=== PATIENT | female | born 1945 | race Caucasian/White ===

== ENCOUNTER → 2023-08-08 07:14 | Outpatient (REF) | payer MEDICARE, OTHER, SELFPAY ==
[2023-08-08 08:17] LABS: % Basophils 1.4 % (0-2); % Eosinophils 0.6 % (0-6); % Immature Granulocytes 0.5 % (0-0.5); % Lymphocytes 27.1 % (20.5-51.1); % Neutrophils 62.4 % (42.2-75.2); Absolute Basophils 0.1 10^3/uL (0-0.2); Absolute Lymphocytes 1.8 10^3/uL (1.2-3.4); Absolute Monocytes 0.5 10^3/uL (0.1-0.6); Absolute Neutrophils 4.1 10^3/uL (1.4-6.5); Hematocrit 40.9 % (37.0-47.0); Hemoglobin 14.3 g/dL (12.0-16.0); Mean Corpuscular Hgb 32.6 pg (27.0-31.0); Mean Corpuscular Volume 93.2 fL (81.0-99.0); Mean Platelet Volume 11.5 fL (7.4-10.4); Nucleated Red Blood Cells % 0 %; Platelet Count 242 10^3/uL (130-400); Red Blood Cell Count 4.39 10^6/uL (4.20-5.40); Red Cell Dist. Width 13.1 % (11.5-14.5); White Blood Cell Count 6.5 10^3/uL (4.8-10.8)
[2023-08-08 08:40] LABS: ALT (SGPT) 22 U/L (0-35); AST (SGOT) 26 U/L (14-36); Albumin 4.2 g/dl (3.5-5.0); Alkaline Phosphatase 61 U/L (38-126); Blood Urea Nitrogen 11 mg/dl (7-17); Calcium 10.2 mg/dl (8.4-10.2); Carbon Dioxide 25 mmol/L (22-30); Chloride 104 mmol/L (98-107); Glucose 103 mg/dl (70-99); HDL Cholesterol 56 mg/dl; LDH 165 U/L (120-246); LDL Cholesterol, Calculated 71 mg/dl; Potassium 4.1 mmol/L (3.5-5.1); Sodium 136 mmol/L (135-145); Total Bilirubin 0.7 mg/dl (0.2-1.3); Total Cholesterol 141 mg/dl (50-199); Total Protein 6.7 g/dl (6.3-8.2); Triglyceride 71 mg/dl (10-149); Very Low Density Lipoprotein 14 mg/dl (0-30); eGFR > 60.00
[2023-08-08 09:11] LABS: TSH Reflex To Free T4 2.19 uIU/ml (0.47-4.68)
== END ==
LOC: REG 07:14
PROVIDERS: ATTENDING PHYSICIAN Dermatology; FAMILY PHYSICIAN Internal Medicine
DX: Z85.820 Personal history of malignant melanoma of skin (principal); I10 Essential (primary) hypertension; E78.00 Pure hypercholesterolemia, unspecified; Z79.899 Other long term (current) drug therapy
CPT/HCPCS: 36415; 80053; 80061; 83615; 84443; 85025

== ENCOUNTER → 2023-10-03 14:14 | Outpatient (REF) | payer MEDICARE, OTHER, SELFPAY ==
[2023-10-03 18:01] LABS: Urine Albumin Negative (Neg - Trace); Urine Bilirubin Negative (Negative); Urine Character Clear (Clear); Urine Color Yellow; Urine Glucose Negative (Negative); Urine Ketone Negative (Negative); Urine Leukocyte Negative (Negative); Urine Nitrite Negative (Negative); Urine Occult Blood Negative (Negative); Urine Specific Gravity 1.015 (<1.030); Urine Urobilinogen Negative (Neg - 1+)
== END ==
LOC: CLAB 14:14
PROVIDERS: ATTENDING PHYSICIAN Obstetrics & Gynecology
DX: N39.0 Urinary tract infection, site not specified (principal)
CPT/HCPCS: 81003; 87086

== ENCOUNTER → 2023-10-15 09:41 | Outpatient (REF) | payer MEDICARE, OTHER, SELFPAY | LOC: HWRAD 09:41 | PROVIDERS: ATTENDING PHYSICIAN Nurse Practitioner Adult Health; REFERRING PHYSICIAN Obstetrics & Gynecology | DX: R39.89 Other symptoms and signs involving the genitourinary system (principal) | CPT/HCPCS: 76770 ==

== ENCOUNTER → 2023-10-31 10:20 | Outpatient (REF) | payer MEDICARE, OTHER, SELFPAY | LOC: RCS 10:20 | PROVIDERS: ATTENDING PHYSICIAN Internal Medicine Cardiovascular Disease; FAMILY PHYSICIAN Internal Medicine | DX: I10 Essential (primary) hypertension (principal) | CPT/HCPCS: 93306 ==

== ENCOUNTER 2024-04-28 00:37 | Emergency (ER) | payer MEDICARE, OTHER, SELFPAY ==
[2024-04-28 00:41] VITALS: BP 145/55
[2024-04-28 01:00] VITALS: BP 110/69
[2024-04-28] MEDS: NSS 1000 IV (01:09)
[2024-04-28] MEDS: ZOFRAN 4 MG IV ×2 (01:09→04:31)
[2024-04-28 01:27] LABS: ALT (SGPT) 19 U/L (0-35); AST (SGOT) 25 U/L (14-36); Albumin 4.4 g/dl (3.5-5.0); Alkaline Phosphatase 64 U/L (38-126); Blood Urea Nitrogen 12 mg/dl (7-17); Calcium 10.4 mg/dl (8.4-10.2); Carbon Dioxide 26 mmol/L (22-30); Chloride 105 mmol/L (98-107); Estimated Creatinine Clearance 70 ml/min; Glucose 97 mg/dl (70-99); Lipase 67 U/L (23-300); Potassium 3.8 mmol/L (3.5-5.1); Sodium 140 mmol/L (135-145); Total Bilirubin 0.5 mg/dl (0.2-1.3); eGFR > 60.00
[2024-04-28 01:32] LABS: % Basophils 0.5 % (0-2); % Eosinophils 0.4 % (0-6); % Immature Granulocytes 0.3 % (0-0.5); % Lymphocytes 10.6 % (20.5-51.1); % Monocytes 4.3 % (1.7-9.3); % Neutrophils 83.9 % (42.2-75.2); Absolute Basophils 0.1 10^3/uL (0-0.2); Absolute Eosinophils 0.1 10^3/uL (0-0.7); Absolute Lymphocytes 1.3 10^3/uL (1.2-3.4); Absolute Monocytes 0.5 10^3/uL (0.1-0.6); Absolute Neutrophils 9.9 10^3/uL (1.4-6.5); Hematocrit 46.3 % (37.0-47.0); Hemoglobin 15.9 g/dL (12.0-16.0); Mean Corp Hgb Conc. 34.3 g/dL (33.0-37.0); Mean Corpuscular Hgb 32.7 pg (27.0-31.0); Mean Corpuscular Volume 95.3 fL (81.0-99.0); Mean Platelet Volume 11.6 fL (7.4-10.4); Nucleated Red Blood Cells % 0 %; Platelet Count 227 10^3/uL (130-400); Red Blood Cell Count 4.86 10^6/uL (4.20-5.40); Red Cell Dist. Width 12.7 % (11.5-14.5); White Blood Cell Count 11.8 10^3/uL (4.8-10.8)
[2024-04-28 02:00] VITALS: BP 141/65
--- NOTE | 2024-04-28 02:23 | ED.GENMED ---
History of Present Illness
General
Chief Complaint: Abdominal Symptoms
Source: patient
Exam Limitations: none
Time Seen by Provider: 04/28/24 00:49
History of Present Illness
History of Present Illness:
79-year-old female presents via EMS from [facility] with onset of nausea and diarrhea prior to arrival. Norovirus is prevalent in her facility. She was encouraged to come here by staff. She denies significant abdominal pain.
She has had 2 episodes of loose stool prior to arrival. She denies any blood in the stool. She denies any fatigue or lightheadedness. No fevers. No other complaints at this time
Past History
Past History
ED Past Medical History: HTN and Hypercholesterolemia
ED Past Surgical History: Gynecological and Orthopedic
Social History
Tobacco: Non-smoker
Alcohol: Occasional
Drug: None
Personal:
Living: with family
Phy Exam
Physical Exam
Physical Exam:
General: Well-appearing female no acute respiratory distress HEENT: Normocephalic atraumatic
Heart: RRR, no murmurs
Lungs: CTA no wheeze
Abd; Soft, nontender, normal bowel sounds
Ext: no cyanosis or edema
Skin: warm, no rash
Neuro: alert and oriented x 3.
Course
Orders/Labs/Results
Orders:
Orders
04/28/24 01:01
0.9% Sodium Chloride 1000 ml [Nss] 1,000 ml IV BOLUS
Ondansetron Injectable [Zofran] 4 mg IV NOW STA
04/28/24 01:04
CMP [Comprehensive Metabolic Panel] Urgent
Complete Blood Count/With Diff Urgent
Lipase Urgent
Abnormal Lab Results
04/28/24
01:04
WBC 11.8 H 10^3/uL
(4.8-10.8)
MCH 32.7 H pg
(27.0-31.0)
MPV 11.6 H fL
(7.4-10.4)
Absolute Neuts (auto) 9.9 H 10^3/uL
(1.4-6.5)
Neutrophils % 83.9 H %
(42.2-75.2)
Lymphocytes % 10.6 L %
(20.5-51.1)
Creatinine 0.5 L mg/dL
(0.6-1.0)
Calcium 10.4 H mg/dl
(8.4-10.2)
04/28/24 01:04
04/28/24 01:04
Vital Signs
Initial and Last Documented VS:
Initial Vital Signs
Temp Pulse Resp BP Pulse Ox
98.2 F 81 18 145/55 96
04/28/24 00:41 04/28/24 00:41 04/28/24 00:41 04/28/24 00:41 04/28/24 00:41
Last Documented Vital Signs
Temp Pulse Resp BP Pulse Ox
98.2 F 78 16 141/65 97
04/28/24 00:41 04/28/24 02:00 04/28/24 02:00 04/28/24 02:00 04/28/24 02:00
MDM/Problems Addressed
Differential Diagnosis Includes:
Patient with nausea and 2 episodes of diarrhea prior to arrival. No diarrhea since arriving. Abdomen exam benign vital signs are stable nausea improved after Zofran. Labs reviewed without significant finding. Patient unable to provide stool
culture here
*Critical Care Note
Total Time (30-74mins, 75-104mins- exclusive of procedures): Not Applicable
ED Attending Note
-
Portions of this chart may have been created with voice recognition software.� Occasional wrong word or��sound alike� substitutions may have occurred due to the inherent limitations of voice recognition software.
Discharge Plan
Departure
Patient Disposition: Home (Routine Discharge)
Date of Disposition: 04/28/24
Time of Disposition: 02:41
Patient with high blood pressure during this ER visit?: No
Discharge Problem:
Diarrhea
Instructions: Diarrhea in teens and adults
Prescriptions:
New
ondansetron 4 mg tablet,disintegrating
4 mg PO Q8H PRN (Reason: nausea and vomiting) 4 Days Qty: 10 0RF
No Action
carvedilol 6.25 mg Tablet
6.25 mg PO Q12H
fluticasone propionate 50 mcg/actuation [place],Suspension
1 spray INTRANASAL BID PRN (Reason: rhinitis)
atorvastatin 20 mg Tablet
20 mg PO HS Qty: 30 0RF
lisinopril 20 mg Tablet
40 mg PO DAILY Qty: 30 0RF
docusate sodium 100 mg Capsule
100 mg PO BID AT 0800,1700 Qty: 60 0RF
trazodone 50 mg Tablet
50 mg PO HSPRN PRN (Reason: sleep) Qty: 30 0RF
baclofen 10 mg Tablet
5 mg PO HSPRN PRN (Reason: spasms) Qty: 30 0RF
trazodone 150 mg Tablet
150 mg PO HS Qty: 30 0RF
enoxaparin 40 mg/0.4 mL Syringe
40 mg SC QPM Qty: 30 0RF
melatonin 5 mg Tablet
5 mg PO HS Qty: 30 0RF
sennosides [senna] 8.6 mg Tablet
17.2 mg PO NOON PRN (Reason: constipation) Qty: 60 0RF
pantoprazole 20 mg Tablet,Delayed Release (Dr/Ec)
20 mg PO DAILY Qty: 30 0RF
amlodipine 10 mg Tablet
10 mg PO HS Qty: 30 0RF
multivitamin with folic acid [Tab-A-Herlinda] 400 mcg Tablet
1 tab PO DAILY Qty: 30 0RF
acetaminophen 325 mg Tablet
650 mg PO Q6HPRN PRN (Reason: mild pain) Qty: 100 0RF
sertraline 100 mg Tablet
100 mg PO DAILY Qty: 30 0RF
tamsulosin 0.4 mg Capsule
0.4 mg PO HS Qty: 30 0RF
Referrals:
Jeny Christie MD [Family Provider] -
Activity Restrictions/Additional Instructions:
Drink plenty clear liquids. Use Zofran 4 mg every 8 hours as needed for nausea. Return here for worsening symptoms otherwise follow-up with your doctor
Interventions
Interventions:
*Risk Screen - Suicide Last Done: 04/28/24 00:41
*General Assessment Last Done: 04/28/24 00:41
*Neglect/Abuse Screening Last Done: 04/28/24 00:41
ED- Fall Risk Assessment Last Done: 04/28/24 01:29
*ED COVID-19 Vaccine History Last Done: 04/28/24 00:45
VG-Umymxt-Hpujvaoftg Assessment Last Done: 04/28/24 01:29
Discharge Date and Time
Print Language: BRUNEIAN
[2024-04-28 03:00] VITALS: BP 141/87
[2024-04-28 04:00] VITALS: BP 144/84
[2024-04-28 07:44] VITALS: BP 139/80
== END 2024-04-28 08:00 | disposition home or self-care (01) ==
LOC: EMR 00:37
PROVIDERS: Physician Assistant; EMERGENCY PHYSICIAN Student in an Organized Health Care Education/Training Program; FAMILY PHYSICIAN Internal Medicine
DX: R19.7 Diarrhea, unspecified (principal); R11.2 Nausea with vomiting, unspecified; I10 Essential (primary) hypertension
CPT/HCPCS: 99284; 96374; 96361; 96376; 80053; 83690; 85025

== ENCOUNTER → 2024-08-10 13:19 | Outpatient (REF) | payer MEDICARE, OTHER, SELFPAY ==
[2024-08-10 13:34] LABS: % Basophils 1.6 % (0-2); % Eosinophils 1.4 % (0-6); % Immature Granulocytes 0.2 % (0-0.5); % Lymphocytes 43.9 % (20.5-51.1); % Monocytes 9.8 % (1.7-9.3); % Neutrophils 43.1 % (42.2-75.2); Absolute Basophils 0.1 10^3/uL (0-0.2); Absolute Eosinophils 0.1 10^3/uL (0-0.7); Absolute Lymphocytes 2.5 10^3/uL (1.2-3.4); Absolute Monocytes 0.6 10^3/uL (0.1-0.6); Absolute Neutrophils 2.5 10^3/uL (1.4-6.5); Hematocrit 40.1 % (37.0-47.0); Hemoglobin 13.8 g/dL (12.0-16.0); Mean Corp Hgb Conc. 34.4 g/dL (33.0-37.0); Mean Corpuscular Hgb 33.6 pg (27.0-31.0); Mean Corpuscular Volume 97.6 fL (81.0-99.0); Mean Platelet Volume 11.9 fL (7.4-10.4); Nucleated Red Blood Cells % 0 %; Platelet Count 195 10^3/uL (130-400); Red Blood Cell Count 4.11 10^6/uL (4.20-5.40); White Blood Cell Count 5.7 10^3/uL (4.8-10.8)
[2024-08-10 13:53] LABS: ALT (SGPT) 20 U/L (0-35); AST (SGOT) 23 U/L (14-36); Albumin 3.8 g/dl (3.5-5.0); Alkaline Phosphatase 52 U/L (38-126); Blood Urea Nitrogen 11 mg/dl (7-17); Carbon Dioxide 29 mmol/L (22-30); Chloride 106 mmol/L (98-107); Glucose 91 mg/dl (70-99); HDL Cholesterol 65 mg/dl; LDL Cholesterol, Calculated 62 mg/dl; Potassium 4.5 mmol/L (3.5-5.1); Sodium 140 mmol/L (135-145); Total Bilirubin 0.6 mg/dl (0.2-1.3); Total Cholesterol 139 mg/dl (50-199); Total Protein 6.1 g/dl (6.3-8.2); Triglyceride 61 mg/dl (10-149); Very Low Density Lipoprotein 12 mg/dl (0-30); eGFR > 60.00
[2024-08-10 14:01] LABS: Free T4 0.93 ng/dl (0.78-2.19)
[2024-08-10 17:26] LABS: TSH 3.04 uIU/ml (0.47-4.68)
== END ==
LOC: OLABWPC 13:19
PROVIDERS: ATTENDING PHYSICIAN Nurse Practitioner Family
DX: I10 Essential (primary) hypertension (principal); E78.00 Pure hypercholesterolemia, unspecified
CPT/HCPCS: 36415; 80053; 80061; 84439; 84443; 85025